=== PATIENT | female | born 1955 | race Caucasian/White ===

== ENCOUNTER 2022-12-30 10:31 | Outpatient (AMB) | payer MEDICARE, OTHER, SELFPAY ==
--- NOTE | 2022-12-30 11:03 | HO.SPINEOV ---
Intake Intake Visit Reasons: low back pain Intake Note: Mrs. Meneses is here today c/o low back pain. MRI done @ [facility]/brought disc. 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 HPI: This 67-year-old female has a 12 year history of progressive back pain. She states it is located on the right side of the upper lumbar region. The pain is constantly. She describes pain going down her knees and tingling in her legs. The symptoms are unrelated to walking or standing and do not improve with sitting per se. She denies weakness. She had multiple steroid injections done which relieve her symptoms for several months. She also completed physical therapy and chiropractic without success. PMH: Pre diabetes, hypertension Social history: Medications: Hydrochlorothiazide, duloxetine, gabapentin, and Avastin, trazodone, aspirin, fexofenadine, tramadol Allergies: Penicillin Physical Exam: Pleasant, obese female. No deformities of the spine on inspection. No significant pain on palpation. Straight leg raise is negative. Neurological exam is intact more sensation. No pathological reflexes. Radiological Studies: MRI done [facility] on 11/25/2022 shows multilevel degenerative disc disease from L2-S1, facet arthropathy of the right L3-4 joint. No significant central stenosis or foraminal stenosis. Impression/Plan: This patient is predominantly suffering from chronic back pain. History is not compatible with neurogenic claudication or radiculopathy. The MRI shows multilevel degenerative disc disease and a right L3-4 facet arthropathy. The back pain is mostly located on the right side and therefore I was wondering if pain management had injected her facet joint in the past. If not, then that would be my recommendation. I also told her that she is a poor surgical candidate as addressing the degenerative disc disease with a multilevel fusion would have an unpredictable results. Thank you for allowing me to participate in your patients care. Do not hesitate to call me with any questions or concerns. total time spent was 50 minutes in counseling ,coordination of plan, personal review of imaging. Edi Pyle MD, PhD Spine Fellowship Trained Neurosurgeon Director, [facility] Coding Level of Care Code New Pt Level 4 (51013) Diagnoses Lumbar degenerative disc disease M51.36
== END 2022-12-30 11:50 | disposition home or self-care (01) ==
PROVIDERS: Referring Provider Family Medicine; Visit Provider Neurological Surgery
DX: M51.36 Other intervertebral disc degeneration, lumbar region (principal)
CPT/HCPCS: 99204

== ENCOUNTER → 2022-12-30 10:31 | Outpatient (BNVA) | payer MEDICARE, OTHER, SELFPAY | PROVIDERS: Visit Provider Neurological Surgery | DX: M51.36 Other intervertebral disc degeneration, lumbar region (principal) | CPT/HCPCS: 99202 ==